=== PATIENT | female | born 1950 | race Caucasian/White ===

== ENCOUNTER 2023-10-16 11:53 | Inpatient (IN) | payer MEDICARE, MEDICAID, SELFPAY ==
[2023-10-16] VITALS (20 sets, daily range): BP systolic 109–138; BP diastolic 57–88; PULSE 101–114; RESP 14–26; TEMP 36.4–36.6; O2SAT 90–97; BMI 25.1
--- NOTE | ~2023-10-16 | XR_ITS ---
XR chest 2V Ordering provider: Cha Schmitt MD History: 73 years Female with . ams, abnormal labs . Comparison: None. FINDINGS: MEDIASTINUM: The cardiac silhouette is not enlarged. LUNGS: No effusion or pneumothorax. Opacification in the left lung base suggestive of atelectasis yash nikolay pneumonia. OTHER: No free air under the diaphragm. Dextroscoliosis with degenerative changes of the spine. Left shoulder osteoarthritic change. IMPRESSION: Left basal atelectasis versus pneumonia. Reviewed, dictated and finalized at location A.
--- NOTE | ~2023-10-16 | CT_ITS ---
EXAMINATION: CTA chest PE abdomen pel DATE: 10/16/2023 22:11 INDICATION: tachycardia, elevated troponin, hypoxemia TECHNIQUE: Computed tomography angiography (CTA) of the chest was performed with 100 mL Omnipaque-350 intravenous contrast timed to evaluate the pulmonary arteries, followed by portal venous phase imagi ng of the abdomen and pelvis. Coronal maximum intensity projection 3D-reconstructions were created by the technologist. The dose-length product (DLP) was 977.45 mGy-cm. Automated exposure control and it erative reconstruction technique were employed. COMPARISON: None. FINDINGS: CHEST: Lung parenchyma and airways: Left infrahilar mass measuring approximately 3.6 x 4.2 x 4.9 cm which oc cludes the traversing lower lobe bronchi and narrows the traversing pulmonary arteries. Segmental con solidation and volume loss distal to the mass. Multiple scattered pulmonary nodules. Pleura: Unremarkable. Thoracic inlet, axillae and chest wall: No thyroid or soft tissue mass. Thoracic aorta: No significant dilation. No dissection. Mediastinum: Enlarged AP window lymph node. Heart and pericardium: Normal. Coronary artery calcifications: Mild. Thoracic bones: Multiple lytic lesions in the thoracic vertebral bodies, the left lateral ninth rib, and the right posterior sixth rib. Pulmonary arteries: Study quality: . No pulmonary emboli detected. ABDOMEN/PELVIS: Liver: Innumerable hypoenhancing liver lesions. Biliary/Gallbladder: No bile duct dilation. Pancreas: Irregular rim-enhancing low-density lesion in the tail of the pancreas measuring up to 7.3 cm. Spleen: Normal. Adrenals:No mass. Kidneys: No suspicious mass, obstructing stone, or hydronephrosis. GI tract: No small or large bowel dilation. The appendix is not confidently visualized Mesentery/Peritoneum: Multiple marilu hepatic lymph nodes. The portal hepatic nodes and several mesent tano nodes contain central low density which may represent tumor/necrosis. Retroperitoneum: No mass. Atherosclerotic abdominal aortic and/or arterial calcifications. Pelvis: Urinary bladder wall edema and inflammatory change. Thickened endometrium versus endometrial fluid. Trace pelvic fluid. Normal bilateral ovaries.. Soft Tissues: Soft tissues and body wall unremarkable. Abdominopelvic bones: Multiple lytic lesions in the lumbar spine and pelvis. IMPRESSION: No CT evidence of acute pulmonary embolus. Left infrahilar mass measuring up to 4.9 cm, suspicious for neoplasia, which narrows traversing bronc hi and pulmonary arteries. This may represent a primary tumor site or metastatic hilar node. Postobst ructive atelectasis and possibly postobstructive pneumonia. Mediastinal lymphadenopathy and multiple pulmonary nodules suspicious for metastatic disease. 7.3 cm pancreatic tail mass, may represent tumor with central necrosis. Correlate with pancreatitis l abs and tumor markers. Marilu hepatic and mesenteric lymphadenopathy with necrosis. Multiple lytic osseous lesions in the ribs, thoracolumbar spine, and pelvis, also suspicious for meta static disease. Reviewed, dictated and finalized at location K. IMPRESSION: No CT evidence of acute pulmonary embolus. Left infrahilar mass measuring up to 4.9 cm, suspicious for neoplasia, which na rrows traversing bronchi and pulmonary arteries. This may represent a primary t umor site or metastatic hilar node. Postobstructive atelectasis and possibly po stobstructive pneumonia. Mediastinal lymphadenopathy and multiple pulmonary nodules suspicious for metas tatic disease. 7.3 cm pancreatic tail mass, may represent tumor with central necrosis. Correla te with pancreatitis labs and tumor markers. Marilu hepatic and mesenteric lymphadenopathy with n
--- NOTE | ~2023-10-16 | CT_ITS ---
EXAMINATION: CT brain wo con DATE: 10/16/2023 12:50 INDICATION: Altered mental status TECHNIQUE: Computed tomography (CT) of the head was performed without intravenous contrast. Sagittal and coronal reconstructions were performed. The mA was adjusted according to patient size. Iterative reconstruction technique was employed. The dose-length product was 681.00 mGy-cm. COMPARISON: head CT dated 03/12/2018 FINDINGS: Again seen is a right parietal ventricular shunt catheter with distal tip along the right side of the intraventricular septum. No acute intracranial hemorrhage, acute infarction or abnormal extra axial fluid collection. There is mild scattered white matter hypoattenuation consistent with chronic small vessel ischemic disease. Symmetric prominence of the sulci and anterior horns and bodies of the left and right lateral ventricles consistent with moderate age-appropriate diffuse cerebral volume loss. N o dilation of the temporal or occipital horns of the lateral ventricles to suggest hydrocephalus. No mass/mass effect. Unchanged medius retention cyst at the superomedial aspect of the left maxillary si nus. The orbits, paranasal sinuses and mastoid air cells are normal. IMPRESSION: 1. Unchanged right parietal ventricular shunt with distal tip in the right lateral ventricle along th e intraventricular septum. 2. Moderate central predominant atrophy with stable appearance of increased prominence of the sulci a nd bodies and anterior horns of the lateral ventricles without dilation of the occipital or temporal horns to suggest hydrocephalus. 3. Mild scattered white matter hypoattenuation consistent with chronic small vessel ischemic disease. . Reviewed, dictated and finalized at location A. IMPRESSION: 1. Unchanged right parietal ventricular shunt with distal tip in the right late ral ventricle along the intraventricular septum. 2. Moderate central predominant atrophy with stable appearance of increased pro minence of the sulci and bodies and anterior horns of the lateral ventricles wi thout dilation of the occipital or temporal horns to suggest hydrocephalus. 3. Mild scattered white matter hypoattenuation consistent with chronic small ve ssel ischemic disease..
--- NOTE | ~2023-10-16 | US_ITS ---
COMPLETE ABDOMINAL ULTRASOUND Ordering provider: Cha Schmitt MD History: . elevated LFTs . Comparison: None. FINDINGS: LIVER: Multiple masses are seen which shows hypoechoic echogenicity. Echogenic foci are seen in some of these masses. The liver is seen in the left lobe which measures 3.3 x 3.1 x 3.2 cm. These are most likely metastatic lesions. Clinical correlation advised. Abscesses are less likely. GALLBLADDER: No stones. No Armstrong's positive sign. A negative sonographic Armstrong's sign was noted. Wa ll thickness is 2 mm. BILIARY DUCTS: No evidence for intra or extrahepatic biliary dilation. Common bile duct measures 3.4 mm in diameter which is within normal limits. PANCREAS: Normal echotexture and size. KIDNEYS: Right measures 8.8x 5.2x 5.7 cm in length There is no evidence for hydronephrosis, solid brian al mass, renal calculi or perinephric fluid collections. No renal cysts. UPPER ABDOMINAL AORTA: Normal in caliber. IVC: Patent. FREE FLUID: None. IMPRESSION: Multiple hypoechoic areas in the liver most likely metastatic lesions. Clinical correlation and furth er evaluation advised.. Reviewed, dictated and finalized at location A. IMPRESSION: Multiple hypoechoic areas in the liver most likely metastatic lesions. Clinical correlation and further evaluation advised..
--- NOTE | ~2023-10-16 | US_ITS ---
EXAMINATION: US biopsy liver DATE: 10/17/2023 13:20 INDICATION: Multiple hepatic nodules suspicious for metastatic disease TECHNIQUE: The procedure including the risks and benefits was discussed with the patient's brother. R isks discussed included bleeding and infection. The patient's brother understood the risks and agreed to proceed. The skin overlying the left hepatic lobe was prepped and draped in usual sterile fashion . Anesthetic was administered with 1% lidocaine subcutaneously. An 18 gauge core biopsy needle was advanced under continuous ultrasound observation to the lesion of interest. 4 core biopsy specimens were obtained. The needle was removed and the entry site was cleaned and dressed. Post procedure ul trasound demonstrated no hemorrhage. FINDINGS: Ultrasound images demonstrate multiple hypoechoic masses scattered throughout the liver. Hunter bsequent images demonstrate biopsy needle passed through 2 of the nodules in the lateral segment of t he left hepatic lobe. IMPRESSION: 1. Successful Ultrasound-guided biopsy of a couple hypoechoic hepatic nodules suspicious for metastat ic disease. Reviewed, dictated and finalized at location A. IMPRESSION: 1. Successful Ultrasound-guided biopsy of a couple hypoechoic hepatic nodules s uspicious for metastatic disease.
--- NOTE | 2023-10-16 12:33 | ECG_ITS ---
Test Date: 2023-10-16 13:00:52 Measurements Intervals [place] Rate: 103 P: 41 TX: 155 QRS: -11 QRSD: 77 T: 27 QT: 349 QTc: 457 Interpretive Statements SINUS TACHYCARDIA POSSIBLE ANTERIOR MYOCARDIAL INFARCTION , PROBABLY OLD [30 ms Q WAVE IN V3/V4, OR R < 0.2 mV IN V4] INFERIOR MYOCARDIAL INFARCTION , PROBABLY OLD [40+ ms Q WAVE AND/OR ST/T ABNORMALITY IN II/aVF] ABNORMAL ECG No previous ECG available for comparison Electronically Signed On 10-16-2023 15:29:49 CDT by Miguelangel Andrew M.D.
[2023-10-16 13:19] LABS: Alveolar/Arterial O2 Gradient 36.6 mmHg; Base Excess ABG 6.9 mEq/l (+/-2.0); Carboxyhemoglobin 0.9 % THb (0-2.0); Fractional Inspired Oxygen 21 %; HCO3 ABG 30.8 mEq/l (22.0-26.0); Methemoglobin ABG 0.2 %THb (0-1.5); Oxygen Content ABG 18.3 %vol (16.0-22.0); Oxygen Saturation ABG 93.9 % (95.0-100.0); Oxyhemoglobin 91.2 % THb (90.0-100.0); PCO2 ABG 41.1 mmHg (35.0-45.0); PO2 ABG 63.9 mmHg (80.0-100.0); PO2 FiO2 Ratio Arterial Blood 3.04 %; Reduced Hemoglobin 7.7 %THb (0-5.0); Total Hemoglobin 14.3 g/dL (12.0-18.0); pH ABG 7.493 (7.350-7.450)
[2023-10-16 13:20] LABS: Modified Allen's Test Pass; Site Drawn RIGHT RADIAL
--- NOTE | 2023-10-16 13:34 | ED.RECABL ---
HPI - Recheck/Abnormal Lab/Rx General Chief Complaint: Recheck/Abnormal Lab/Rx Stated Complaint: abn labs Time Seen by Provider: 10/16/23 12:08 Source: patient, EMS, RN notes reviewed and old records reviewed Mode of arrival: EMS Limitations: other (poor historian) History of Present Illness HPI narrative: This is a 73 year old female who presents from halfway for evaluation of altered mental status. Labs were done on patient last week and she was found to have wbc of 16 last Monday. Patient has speech difficulties at baseline so it is difficult to get history. She knows her name and location. Nursing reports patient patient is normally oriented x 3 and today she is only oriented to 2. Related Data Home Medications Medication Instructions Recorded Confirmed aripiprazole 15 mg tablet 15 mg PO DAILY 07/31/19 buspirone 7.5 mg tablet 7.5 mg PO BID 07/31/19 citalopram 10 mg tablet 10 mg PO DAILY 07/31/19 Allergies Allergy/AdvReac Type Severity Reaction Status Date / Time No Known Allergies Allergy Unverified 07/31/19 11:31 Review of Systems Review of Systems: ROS unobtainable: Yes unobtainable due to medical condition and unobtainable due to mental status PMFSH Past Medical History Medical History (Updated 10/16/23 @ 21:24 by Cha Schmitt MD) Bronchitis Dizzy spells Hydrocephalus Mental disability without special needs Schizophrenia Surgical History Surgical History (Updated 10/16/23 @ 13:40 by Cha Schmitt MD) S/P COAT JOINER shunt Family History Family History (Updated 07/31/19 @ 11:40 by Walter Estrella CMA) Father , 85 liver cancer Liver cancer Mother , old age dementia Dementia Sibling Non-Hodgkin lymphoma Social History Social History (Updated 07/31/19 @ 11:21 by Walter Estrella CMA) Smoking status: Never smoker Alcohol intake: never Exam Const: General: alert Nutritional Appearance: well nourished Other: oriented to person and place HENMT: Head: normal to inspection Mouth: Yes Normal oral and palatal mucosa present, Yes lip normal and Yes moist mucous membranes Eyes: Pupils: Equal, round and reactive pupils present EOM: EOMs intact bilaterally Neck: Neck: normal visual inspection Resp: Effort & Inspection: normal respiratory effort Auscultation: clear to auscultation bilaterally Cardio: Rate: regular rate Rhythm: regular rhythm Heart sounds: no murmurs GI: Inspection: distended GI Palp: Yes Soft to palpation, No Tenderness to palpation present (GI), No Guarding due to palpation present (GI) and No Rigid due to palpation Auscultation: normal bowel sounds Skin: General skin exam: normal color Rashes: no rashes Neuro: General: moves all extremities, no focal motor deficits and CN's II-XI intact bilaterally Extrem: General: no pedal edema Psych: Mental Status: mental status grossly normal Affect: normal affect Attitude: cooperative Course Reevaluation(s) Reevaluation #1: Patient understands she will be admitted. I discussed with her brother who is her POA/ Date: 10/16/23 Time: 18:00 Consultations Consultation #1: I spoke with Mary Coleman with hospitalist. I discussed labs and imaging. She agrees to admit for evaluation of confusion, UTI and possible metastatic disase. Date: 10/16/23 Time: 15:00 Vital Signs Vital signs: Vital Signs Temperature 97.6 F 10/16/23 11:57 Pulse Rate 102 H 10/16/23 11:57 Respiratory Rate 16 10/16/23 11:57 Blood Pressure 120/88 10/16/23 11:57 Pulse Oximetry 94 10/16/23 11:57 Oxygen Delivery Room Air 10/16/23 11:57 Temperature 98 F 10/16/23 20:47 Pulse Rate 107 H 10/16/23 20:47 Respiratory Rate 20 10/16/23 20:47 Blood Pressure 128/65 10/16/23 20:47 Pulse Oximetry 91 10/16/23 20:47 Oxygen Delivery Room Air 10/16/23 11:57 MDM - Recheck/Abnormal Lab/Rx MDM Narrative Medical decision making narrative: Patient presented for
[2023-10-16 13:43] LABS: Hematocrit 43.7 % (37.0-47.0); Hemoglobin 13.6 g/dL (12.0-15.0); Mean Corpuscular HGB Conc 31.1 g/dl (32-36); Mean Corpuscular Hemoglobin 27.8 pg (26-34); Mean Corpuscular Volume 89.2 fl (80-100); Mean Platelet Volume 11.6 fl (7.4-10.4); Platelet Count Result 202 k/mm3 (150-375); Red Cell Distribution Width 18.5 % (11.5-14.5)
[2023-10-16 13:52] LABS: Prothrombin Time 14.1 Seconds (11.1-14.7)
[2023-10-16 13:53] LABS: Partial Thromboplastin Time 29.7 Seconds (22.3-36.8)
[2023-10-16 13:56] LABS: Ammonia 26 umol/L (9-30); Lactic Acid Reflex 1.4 mmol/L (0.7-2.0)
[2023-10-16 13:57] LABS: Alanine Aminotransferase 83 U/L (6-35); Albumin Level 3.5 g/dL (3.5-5.1); Alkaline Phosphatase 774 U/L (38-126); Anion Gap 6 mmol/L (4-12); Aspartate Amino Transferase 90 U/L (14-36); Bilirubin,Total 2.7 mg/dL (0.2-1.3); Blood Urea Nitrogen 22 mg/dL (7-17); Calcium 9.7 mg/dL (8.4-10.2); Carbon Dioxide 32 mmol/L (22-30); Chloride 107 mmol/L (98-107); Estimated CRCL calculation 59 ml/min; Estimated Glomerular Filt Rate > 60; Glucose 89 mg/dL (65-110); Lipase 86 U/L (23-300); Magnesium 2.3 mg/dL (1.6-2.3); Potassium 3.5 mmol/L (3.4-5.0); Sodium 145 mmol/L (137-145)
[2023-10-16 14:08] LABS: Eosinophils Absolute Manual 0.63 K/mm3 (0.02-0.50); Eosinophils Percent Manual 3 % (0-4); Lymphocytes Absolute Manual 1.89 K/mm3 (1.1-4.5); Monocytes Absolute Manual 1.05 K/mm3 (0.1-0.90); Monocytes Percent Manual 5 % (3-9); Neutrophils Percent Manual 83 % (46-73); Total Cells Counted 100
[2023-10-16 14:09] LABS: Anisocytosis 2+; Hypochromasia 1+; Platelet Estimate Adequate (Adequate); Schistocytes None Seen
[2023-10-16 14:10] LABS: NT Pro B Type Natriuretic Pept 177 pg/mL (19.9-100); Troponin I 0.051 ng/mL (0.000-0.034)
[2023-10-16 14:39] LABS: Influenza A QL RT-PCR Negative (Negative); Influenza B QL RT-PCR Negative (Negative); SARS-CoV-2 RNA PCR Negative (Negative)
[2023-10-16 14:41] LABS: Appearance Urine Cloudy (Clear); Bacteria Urine 4+ /hpf; Bilirubin Urine 2+ (Negative); Blood Urine 2+ (Negative); Color Urine Dark Yellow (Yellow); Glucose Urine UA Negative (Negative); Ketones Urine Negative (Negative); Leukocyte Esterase Ur 2+ LEU/UL (Negative); Need Manual Microscopic Reviewed; Nitrate Urine Positive (Negative); Protein Urine Trace mg/dL (Negative); Specific Grav Ur 1.027 (1.001-1.035); Squamous Epithelial Cell Urine Occasional /hpf (Few); WBC Urine >100 /hpf (0-3); pH Urine 5.5 (5.0-9.0)
[2023-10-16 14:51] LABS: Add Urine Microscopic? YES
[2023-10-16 15:14] LABS: Hepatitis B Surface Antigen Negative (Negative)
[2023-10-16 15:20] LABS: HAV RESULT Negative (Negative); Hepatitis B Core IgM Result Negative (Negative)
[2023-10-16 15:31] LABS: Hepatitis C Virus Antibody Negative (Negative)
[2023-10-16] MEDS: SODIUM CHLORIDE 0.9% IV 1,000 ML 999 ML IV CONT (15:31)
--- NOTE | 2023-10-16 15:54 | PC.NURSE ---
update given to Aixa MOORE, Nurse Stroboroma Operator Tres made aware of pt being admitted.
[2023-10-16 16:41] LABS: Glucose Point of Care 109 mg/dl (65-105)
[2023-10-16] MEDS: SODIUM CHLORIDE 0.9% IV 1,000 ML 125 ML IV CONT (17:05)
--- NOTE | 2023-10-16 17:15 | PC.NURSE ---
no thicken liquids per [facility]
[2023-10-16 17:19] LABS: Troponin I 0.054 ng/mL (0.000-0.034)
--- NOTE | 2023-10-16 19:36 | ADMGEN ---
This patient, Chloe Valladares, was admitted to IMU Room 206-01 on 10/16/23 at 1815. Patient/family oriented to hospital policies and general routines including ID bracelet, bed and alarms, visiting hours, pain management, procedures, bathroom and other care routines, personal items, smoking policy, room service/diet, and visiting hours. Information on how to activate the Rapid Response Team has been discussed. Patient/Family are encouraged to report perceived risks to care and to ask questions if they do not understand what they are told or what they should do.
--- NOTE | 2023-10-16 20:03 | PM.IMHP ---
H&P: HPI History of Present Illness Date/Time: 10/16/23 20:00 Chief Complaint: Confusion and elevated white blood cell count. Narrative: This is a the 3-year-old female with history of seizures, hydrocephalus intellectual disability, hypothyroidism, asthma, schizophrenia, and pseudobulbar affect who presented to the emergency department via EMS from [facility] for evaluation of confusion and elevated white blood cell count. The patient is a fair historian however some of the following is supplemented via a review of the paperwork which accompanies her today. Over the past week she has become increasingly confused and today she was reportedly alert and oriented x2 instead of x3. Labs done several days ago for evaluation of this confusion demonstrated an increase in white blood cells and she was sent in today for evaluation. At the time my evaluation the patient is resting comfortably. She reports dysuria, mild lower abdominal discomfort, and decrease in appetite. She denies fever, chills, sweats, cold and flu symptoms, chest pain, pleuritic pain, shortness of breath, diarrhea, and constipation. She and fact tells me that her abdomen seems to be getting bigger. In the ED: She was afebrile on arrival with stable blood pressures. She has been tachycardic in the low 100s. Labs were significant for WBC count 21.0, hemoglobin 13.6, platelet 202, BUN 22, creatinine 0.60, total bilirubin 2.7, AST 90, ALT 83, alkaline phosphatase 774, troponin 0.051, BNP 177, lipase 86. Urine is positive for 2+ blood, 2+ bilirubin, 4.0 urobilinogen, positive nitrates, 2+ leukocyte esterase, 11 to 20 RBC, greater than 100 WBC, and 4+ bacteria with occasional squamous cells. She tested negative for influenza and COVID. Abdominal ultrasound showed multiple hypoechoic areas in the liver most likely metastatic lesions. Chest x-ray shows left basilar atelectasis versus pneumonia. Head CT was without acute findings. Is given a dose of ceftriaxone for urinary tract infection and L normal saline bolus and she is being admitted in this setting for further treatment and evaluation. Review of Systems Review of Systems: 12 systems were reviewed and are negative except for as per HPI. [facility] Past Medical History Medical History (Updated 10/16/23 @ 22:00 by Mary Coleman PA-C) Asthma Hydrocephalus Hypothyroidism Intellectual disability Pseudobulbar affect Schizophrenia Seizure Surgical History Surgical History (Updated 10/16/23 @ 21:56 by Mary Coleman PA-C) History of ventriculoperitoneal shunting Family History Family History Father , 85 liver cancer Liver cancer Mother , old age dementia Dementia Sibling Non-Hodgkin lymphoma Social History Social History (Updated 10/16/23 @ 21:56 by Mary Coleman PA-C) Social History: Surrogate medical decision maker: Ion Jacquelyn, brother. Code status: Do not resuscitate. Smoking status: Never smoker Alcohol intake: never Additional living arrangements comments: Resident at [facility] in [place]. Meds Home Medications and Allergies Home Medications Medication Instructions Recorded Confirmed Type aripiprazole 15 mg tablet 15 mg PO DAILY 07/31/19 History buspirone 7.5 mg tablet 7.5 mg PO BID 07/31/19 History citalopram 10 mg tablet 10 mg PO DAILY 07/31/19 History Allergies Allergy/AdvReac Type Severity Reaction Status Date / Time No Known Allergies Allergy Unverified 07/31/19 11:31 Vital Signs Vital Signs - 24 hr 10/16/23 11:57 10/16/23 12:12 10/16/23 12:16 Temperature 97.6 F Pulse Rate 102 H 104 H 106 H Respiratory Rate 16 17 17 Blood Pressure 120/88 138/74 Pulse Oximetry 94 97 95 Oxygen Delivery Room Air 10/16/23 13:15 10/16/23 13:30 10/16/23 14:01 Temperature Pulse Rate 105 H 107 H Respiratory Rate 14 15 14 Blood Pressure Puls
[2023-10-16 20:42] LABS: Troponin I 0.055 ng/mL (0.000-0.034)
[2023-10-16 20:58] LABS: Glucose Point of Care 107 mg/dl (65-105)
[2023-10-16 22:38] LABS: Ammonia < 9 umol/L (9-30)
[2023-10-16 23:33] LABS: Vitamin B12 > 1000.0 pg/mL (239-931)
[2023-10-17] VITALS (16 sets, daily range): BP systolic 108–132; BP diastolic 63–82; PULSE 90–108; RESP 12–18; TEMP 36–36.8; O2SAT 92–98
[2023-10-17 00:16] LABS: Amphetamine Screen Urine Negative (Negative); Barbiturate Screen Urine Negative (Negative); Benzodiazepines Screen Urine Negative (Negative); Cannabinoid Screen Urine Negative (Negative); Cocaine Screen Urine Negative (Negative); Methadone Screen Urine Negative (Negative); Opiate Screen Urine Negative (Negative); Phencyclidine Screen Urine Negative (Negative)
[2023-10-17] MEDS: SODIUM CHLORIDE 0.9% IV 1,000 ML 125 ML IV CONT (03:13)
[2023-10-17 05:22] LABS: Basophils Absolute Auto 0.1 K/mm3 (0.0-0.1); Basophils Percent Auto 0.6 % (0.2-1.2); Eosinophils Absolute Auto 1.3 K/mm3 (0-0.3); Hematocrit 39.7 % (37.0-47.0); Immature Granulocyte Absolute 0.12 K/mm3 (0.00-0.031); Immature Granulocyte Percent A 0.7 % (0-0.5); Lymphocytes Absolute Auto 1.41 K/mm3 (0.9-3.2); Lymphocytes Percent Auto 8.5 % (18.3-44.2); Mean Corpuscular HGB Conc 30.2 g/dl (32-36); Mean Corpuscular Hemoglobin 27.5 pg (26-34); Mean Corpuscular Volume 90.8 fl (80-100); Mean Platelet Volume 11.7 fl (7.4-10.4); Monocytes Absolute Auto 1.3 K/mm3 (0.1-0.6); Monocytes Percent Auto 7.6 % (2.6-8.5); Neutrophils Absolute Auto 12.4 K/mm3 (1.3-6.7); Neutrophils Percent Auto 74.6 % (45.5-73.1); Platelet Count Result 148 k/mm3 (150-375); Red Blood Count 4.37 M/mm3 (4.2-5.4); Red Cell Distribution Width 18.5 % (11.5-14.5); White Blood Count 16.7 K/mm3 (4.5-10.0)
[2023-10-17 05:34] LABS: Alanine Aminotransferase 67 U/L (6-35); Albumin Level 2.9 g/dL (3.5-5.1); Alkaline Phosphatase 585 U/L (38-126); Anion Gap 3 mmol/L (4-12); Aspartate Amino Transferase 70 U/L (14-36); Bilirubin,Total 2.4 mg/dL (0.2-1.3); Blood Urea Nitrogen 16 mg/dL (7-17); Calcium 8.9 mg/dL (8.4-10.2); Carbon Dioxide 30 mmol/L (22-30); Chloride 109 mmol/L (98-107); Estimated CRCL calculation 59 ml/min; Estimated Glomerular Filt Rate > 60; Glucose 87 mg/dL (65-110); Magnesium 2.1 mg/dL (1.6-2.3); Potassium 3.7 mmol/L (3.4-5.0); Sodium 142 mmol/L (137-145)
[2023-10-17 07:46] LABS: Glucose Point of Care 102 mg/dl (65-105)
[2023-10-17 09:20] LABS: Iron 43 ug/dL (37-170)
[2023-10-17 09:24] LABS: CRP 5.7 mg/dL (<1.0)
[2023-10-17 09:30] LABS: Percent Iron Saturation 24 % (20-50)
--- NOTE | 2023-10-17 09:31 | PDONCCN ---
HPI - Date of Consult Date/Time: 10/17/23 12:35 <Can Barrera - 10/17/23 12:38> 10/17/23 09:31 <Chikis Koo - 10/17/23 09:37> Requesting Physician: Bayron Jones MD <Can Barrera - 10/17/23 12:38> Bayron Jones MD <Chikis Koo - 10/17/23 09:37> Primary Care Provider: Robert Desir, <Can Barrera - 10/17/23 12:38> Robert Desir, <Chikis Koo - 10/17/23 09:37> - Consult Narrative Reason for consult: Metastatic Disease <HananeChikis - 10/17/23 09:37> Narrative: Chloe Valladares is a 73 year old female <Can Barrera - 10/17/23 12:38> Chloe Valladares is a 73 year old female with a past medical history of intellectual disability, hydrocephalus, seizures, hypothyroidism, asthma, schizophrenia who was admitted for [facility] for confusion and increased WBC. Upon speaking to patient, she is oriented x1-2. She denies any abdominal pain, reports a fair appetite, feels as if she had mild weight loss, and reports intermittent belly pain at night. She denies any smoking history or alcohol use. Brother has a history of non hodgkins lymphoma. She is on oxygen and is not typically at home. CT scan was performed and is concerning for metastatic disease involving the mediastinal and infrahilar lymphnodes as well as pancreas and osseous lesions. Labs are notable for WBC 16.7, Hgb 12, Plt 148, Cr 0.60 <Chikis Koo - 10/17/23 10:11> Review of Systems - Review of Systems All systems reviewed & are unremarkable except as noted in HPI and bel, unobtainable due to mental status <HananeChikis - 10/17/23 09:37> [facility] Medical History: Medical History (Last Updated 10/16/23 @ 22:00 by Mary Coleman PA-C) Asthma Hydrocephalus Hypothyroidism Intellectual disability Pseudobulbar affect Schizophrenia Seizure <Can Barrera. - 10/17/23 12:38> Medical History (Last Updated 10/16/23 @ 22:00 by Mary Coleman PA-C) Asthma Hydrocephalus Hypothyroidism Intellectual disability Pseudobulbar affect Schizophrenia Seizure <Chikis Koo - 10/17/23 09:37> Surgical History: Surgical History (Last Updated 10/16/23 @ 21:56 by Mary Coleman PA-C) History of ventriculoperitoneal shunting <Can Barrera. - 10/17/23 12:38> Surgical History (Last Updated 10/16/23 @ 21:56 by Mary Coleman PA-C) History of ventriculoperitoneal shunting <ErrolChikis peralta - 10/17/23 09:37> Family History: Family History (Last Updated 10/17/23 @ 01:02 by Sara Tate RN) Father , 85 liver cancer Liver cancer Mother , old age dementia Dementia Sibling Non-Hodgkin lymphoma Other Dementia Sibling No problems noted. <Can Barrera. - 10/17/23 12:38> Family History (Last Updated 10/17/23 @ 01:02 by Sara Tate, ZOYA) Father , 85 liver cancer Liver cancer Mother , old age dementia Dementia Sibling Non-Hodgkin lymphoma Other Dementia Sibling No problems noted. <Mir Koone - 10/17/23 09:37> - Social History Social History: Social History (Last Updated 10/16/23 @ 21:56 by Mary Coleman PA-C) Alcohol Use: Alcohol intake: never Substance Use: Substance use: never Others: Spiritual care concerns: No Smoking Status: Smoking status: Never smoker Social Determinants of Health: Do You Feel Safe in your Home?: Yes Has the Lack of Transportation Kept You From Medical Appointments or From Getting Medications?: Yes Within the Past 12 Months, Were You Worried Whether Your Food Would Run Out Before You Got Money to Buy More?: Never True What is Your Housing Situation Today?: I Have Housing Are You Worried That in the Next 2 Months, You May Not Have Your Own Housing to Live In?:
[2023-10-17 09:40] LABS: Erythrocyte Sedimentation Rate 46 mm/hr (0-20)
[2023-10-17] MEDS: busPIRone HCL 5 MG TABLET 15 MG PO ×2 (09:41→17:14)
[2023-10-17] MEDS: ESCITALOPRAM OXALATE 10 MG TABLET 20 MG PO (09:42)
[2023-10-17] MEDS: DULoxetine HCL 30 MG CAPSULE.DR PO (09:42)
[2023-10-17] MEDS: ARIPiprazole 10 MG TABLET 20 MG PO (09:42)
[2023-10-17] MEDS: FAMOTIDINE 20 MG TABLET PO ×2 (09:42→17:14)
[2023-10-17] MEDS: traMADol HCL (*CRX) 50 MG TABLET 100 MG PO ×2 (09:53→17:15)
[2023-10-17 11:55] LABS: Glucose Point of Care 107 mg/dl (65-105)
--- NOTE | 2023-10-17 13:58 | PM.IMPN ---
Progress Note: A&P Assessment and Plan (1) Urinary tract infection: Code(s): N39.0 - Urinary tract infection, site not specified Status: Acute (2) Transaminitis: Code(s): R74.01 - Elevation of levels of liver transaminase levels Status: Acute (3) Elevated troponin: Code(s): R79.89 - Other specified abnormal findings of blood chemistry Status: Acute (4) Lesion of liver: Code(s): K76.9 - Liver disease, unspecified Status: Acute (5) Intellectual disability: Code(s): F79 - Unspecified intellectual disabilities Status: Acute (6) Schizophrenia: Code(s): F20.9 - Schizophrenia, unspecified Status: Acute Plan This is a the 73-year-old female with history of seizures, hydrocephalus intellectual disability, hypothyroidism, asthma, schizophrenia, and pseudobulbar affect who presented to the emergency department via EMS from [facility] for evaluation of confusion and elevated white blood cell count. The patient is a fair historian however some of the following is supplemented via a review of the paperwork which accompanies her today. Over the past week she has become increasingly confused and today she was reportedly alert and oriented x2 instead of x3. Labs done several days ago for evaluation of this confusion demonstrated an increase in white blood cells and she was sent in for evaluation. She reports dysuria, mild lower abdominal discomfort, and decrease in appetite. She denies fever, chills, sweats, cold and flu symptoms, chest pain, pleuritic pain, shortness of breath, diarrhea, and constipation. She Reported her abdomen seems to be getting bigger. In the ED: She was afebrile on arrival with stable blood pressures. She has been tachycardic in the low 100s. Labs were significant for WBC count 21.0, hemoglobin 13.6, platelet 202, BUN 22, creatinine 0.60, total bilirubin 2.7, AST 90, ALT 83, alkaline phosphatase 774, troponin 0.051, BNP 177, lipase 86. Urine is positive for 2+ blood, 2+ bilirubin, 4.0 urobilinogen, positive nitrates, 2+ leukocyte esterase, 11 to 20 RBC, greater than 100 WBC, and 4+ bacteria with occasional squamous cells. She tested negative for influenza and COVID. Abdominal ultrasound showed multiple hypoechoic areas in the liver most likely metastatic lesions. Chest x-ray shows left basilar atelectasis versus pneumonia. Head CT was without acute findings. She received ceftriaxone for UTI and L off normal saline bolus and admitted for further treatment. UTI: Ceftriaxone urine culture pending Altered mental status as reported however since back to baseline. CT head showed chronic findings with no acute intracranial abnormalities. Will continue to monitor Mild troponin elevation with flat trend Abnormal liver enzymes and abnormal right upper quadrant ultrasound. Further evaluated with a CT chest abdomen pelvis which showed left infrahilar mass measuring up to 4.9 cm suspicious for neoplasm the a which narrows traversing bronchi and pulmonary arteries. May represent a primary tumor or metastatic hilar node. Postobstructive atelectasis and possibly postobstructive pneumonia noted. Mediastinal lymphadenopathy and multiple pulmonary nodules suspicious for metastatic disease. 7.3 cm pancreatic tail mass which may represent tumor with central necrosis. Port gap attic and mesenteric lymphadenopathy with necrosis noted. Multiple lytic osseous lesions in the ribs thoracolumbar spine and pelvis also suspicious for metastatic disease IR consult for biopsy Oncology consultation DVT prophylaxis Lovenox which is held this a.m. for potential biopsy Code status do not resuscitate. Subjective Date/time seen: 10/17/23 13:58 Interval history: No overnight events. No new complaints. Hard to understand her. Discussed with the nursing staff. Review of Systems Review of Systems: All systems reviewed & are unremarkable except as noted in HPI and below Ex
[2023-10-17 16:13] LABS: Glucose Point of Care 89 mg/dl (65-105)
[2023-10-17] MEDS: ACETAMINOPHEN 325 MG TABLET 650 MG PO (21:16)
[2023-10-17] MEDS: MONTELUKAST SODIUM 10 MG TABLET PO (21:17)
[2023-10-17] MEDS: traZODone HCL 50 MG TABLET PO (21:17)
[2023-10-17] MEDS: ATORVASTATIN 10 MG TABLET PO (21:17)
--- NOTE | 2023-10-17 22:06 | ECHO_ITS ---
Patient Info Name: Chloe Valladares Age: 73 years : 1950 Gender: Female Ht: 64 in Wt: 143 lbs BSA: 1.72 m2 HR: 90 bpm BP: 122 / 82 mmHg Heart Rhythm: Sinus Rhythm Technical Quality: Fair Exam Date: 10/17/2023 8:21 AM Exam Location: Echo Lab Patient Status: Inpatient Admit Date: 10/16/2023 Staff Ordering Physician: Mary Coleman PA-C [place] Turner: Johnna Suarez RDCS Attending Provider: Bayron Jones MD Referring Physician: Virginia HOPKINS; Exam Type: CA echo doppler color flow Study Info Indications - ELEVATED TROPONIN Complete two-dimensional, color flow and Doppler transthoracic echocardiogram is performed. Summary 1. Left ventricular chamber dimension is normal. 2. Left ventricular systolic function is normal, estimated at >70%. 3. There is mildly increased left ventricular wall thickness. 4. The left ventricular diastolic function is grade I diastolic dysfunction. 5. Right ventricular systolic function is normal. 6. No significant valvular disease. Left Ventricle Left ventricular chamber dimension is normal. Left ventricular systolic function is normal, estimated at >70%. There is mildly increased left ventricular wall thickness. The left ventricular diastolic function is grade I diastolic dysfunction. Right Ventricle Right ventricular chamber dimension is normal. Right ventricular systolic function is normal. Left Atria Left atrial chamber dimension is normal. Right Atria Right atrial chamber dimension is normal. Atrial Septum Intact interatrial septum visualized by color flow imaging. Aortic Valve The aortic valve is probable trileaflet. There is no aortic valve stenosis. There is trace aortic valve regurgitation. There is mild aortic valve calcification. Pulmonic Valve The pulmonic valve is not well visualized. There is no pulmonic regurgitation. Mitral Valve There is trace mitral valve regurgitation. Tricuspid Valve There is trace tricuspid valve regurgitation. Pericardium/Pleural The pericardium appears epicardial fat pad. There is no pericardial effusion. Inferior Vena Cava Normal inferior vena cava with >50% collapse upon inspiration consistent with normal right atrial pressure, 3 mmHg. Aorta The aortic root size at the sinus of Valsalva is normal. Left Ventricular Outflow Tract Name Value Normal LVOT 2D LVOT Diameter 2.0 cm LVOT Doppler LVOT Peak Gradient 4 mmHg LVOT Mean Gradient 2 mmHg LVOT VTI 15 cm LVOT VTI/AV VTI Ratio 0.8 LVOT Stroke Volume 44 ml LVOT CO 4.6 l/min LVOT CI 2.7 l/min/m2 Pulmonic Valve Name Value Normal RVOT Doppler RVOT Peak Gradient 2 mmHg PV Doppler
[2023-10-18] VITALS (15 sets, daily range): BP systolic 112–136; BP diastolic 53–74; PULSE 97–120; RESP 15–20; TEMP 36.2–37.1; O2SAT 90–94
[2023-10-18 04:47] LABS: Basophils Absolute Auto 0.1 K/mm3 (0.0-0.1); Basophils Percent Auto 0.8 % (0.2-1.2); Eosinophils Absolute Auto 1.4 K/mm3 (0-0.3); Eosinophils Percent Auto 8.9 % (0-4.4); Hematocrit 37.9 % (37.0-47.0); Hemoglobin 11.8 g/dL (12.0-15.0); Immature Granulocyte Absolute 0.08 K/mm3 (0.00-0.031); Immature Granulocyte Percent A 0.5 % (0-0.5); Lymphocytes Absolute Auto 1.39 K/mm3 (0.9-3.2); Lymphocytes Percent Auto 9.2 % (18.3-44.2); Mean Corpuscular HGB Conc 31.1 g/dl (32-36); Mean Corpuscular Hemoglobin 28.1 pg (26-34); Mean Corpuscular Volume 90.2 fl (80-100); Mean Platelet Volume 11.6 fl (7.4-10.4); Monocytes Absolute Auto 1.3 K/mm3 (0.1-0.6); Monocytes Percent Auto 8.3 % (2.6-8.5); Neutrophils Absolute Auto 10.9 K/mm3 (1.3-6.7); Neutrophils Percent Auto 72.3 % (45.5-73.1); Platelet Count Result 141 k/mm3 (150-375); White Blood Count 15.1 K/mm3 (4.5-10.0)
[2023-10-18 04:56] LABS: Alanine Aminotransferase 68 U/L (6-35); Albumin Level 2.8 g/dL (3.5-5.1); Alkaline Phosphatase 596 U/L (38-126); Anion Gap 3 mmol/L (4-12); Aspartate Amino Transferase 90 U/L (14-36); Bilirubin,Total 2.4 mg/dL (0.2-1.3); Blood Urea Nitrogen 18 mg/dL (7-17); Calcium 9.2 mg/dL (8.4-10.2); Carbon Dioxide 30 mmol/L (22-30); Chloride 107 mmol/L (98-107); Estimated CRCL calculation 59 ml/min; Estimated Glomerular Filt Rate > 60; Glucose 115 mg/dL (65-110); Magnesium 2.2 mg/dL (1.6-2.3); Potassium 3.5 mmol/L (3.4-5.0); Sodium 140 mmol/L (137-145)
[2023-10-18 05:13] LABS: Glucose Point of Care 118 mg/dl (65-105)
[2023-10-18 07:48] LABS: Glucose Point of Care 108 mg/dl (65-105)
[2023-10-18] MEDS: traMADol HCL (*CRX) 50 MG TABLET 100 MG PO ×2 (09:01→17:56)
[2023-10-18] MEDS: ESCITALOPRAM OXALATE 10 MG TABLET 20 MG PO (09:01)
[2023-10-18] MEDS: busPIRone HCL 5 MG TABLET 15 MG PO ×2 (09:01→17:07)
[2023-10-18] MEDS: ARIPiprazole 10 MG TABLET 20 MG PO (09:01)
[2023-10-18] MEDS: FAMOTIDINE 20 MG TABLET PO ×2 (09:02→17:07)
[2023-10-18] MEDS: DULoxetine HCL 30 MG CAPSULE.DR PO (09:02)
--- NOTE | 2023-10-18 11:44 | PM.IMPN ---
Progress Note: A&P Assessment and Plan (1) Urinary tract infection: Code(s): N39.0 - Urinary tract infection, site not specified Status: Acute (2) Transaminitis: Code(s): R74.01 - Elevation of levels of liver transaminase levels Status: Acute (3) Elevated troponin: Code(s): R79.89 - Other specified abnormal findings of blood chemistry Status: Acute (4) Lesion of liver: Code(s): K76.9 - Liver disease, unspecified Status: Acute (5) Intellectual disability: Code(s): F79 - Unspecified intellectual disabilities Status: Acute (6) Schizophrenia: Code(s): F20.9 - Schizophrenia, unspecified Status: Acute Plan UTI: Ceftriaxone urine culture growing EColi - sensitivies pending Altered mental status as reported however seems back to baseline. CT head showed chronic findings with no acute intracranial abnormalities. Will continue to monitor Mild troponin elevation with flat trend Abnormal liver enzymes and abnormal right upper quadrant ultrasound. Further evaluated with a CT chest abdomen pelvis which showed left infrahilar mass measuring up to 4.9 cm suspicious for neoplasm which narrows traversing bronchi and pulmonary arteries. May represent a primary tumor or metastatic hilar node. Postobstructive atelectasis and possibly postobstructive pneumonia noted. Mediastinal lymphadenopathy and multiple pulmonary nodules suspicious for metastatic disease. 7.3 cm pancreatic tail mass which may represent tumor with central necrosis. Marilu hepatic and mesenteric lymphadenopathy with necrosis noted. Multiple lytic osseous lesions in the ribs thoracolumbar spine and pelvis also suspicious for metastatic disease IR consulted for biopsy which was done 10/16 Oncology following. Discussed with family and all questions answered. He is considering hospice. DVT prophylaxis Lovenox which is held this a.m. for potential biopsy Code status do not resuscitate. Subjective Date/time seen: 10/18/23 11:44 Interval history: 73yo female with dementia, seizures, hydrocephalus with intellectual disability, hypothyroidism, asthma, schizophrenia, and pseudobulbar affect who presented to the emergency department via EMS from [facility] for evaluation of confusion and elevated white blood cell count. Assuming care. Chart reviewed. She is unable to provide a hx. Review of Systems Review of Systems: ROS unobtainable: Yes unobtainable due to mental status Exam Narrative: AF 97.3 124/59 102 15 91% 1L Gen - NARD lying almost flat in bed Chest - lungs clear anteriorly and in the flanks. nml RR CV - RRR S1/S2. Tele showing no signifincant dysrhythmias Abd - Soft, minimal tenderness in the RUQ, no hematoma at biopsy site RUQ Ext - No pedal edema Psych - Nml mood and affect. alert, confused Skin - Warm and dry Objective Data Vital Signs Vital Signs: Vital Signs - 24 hr 10/17/23 11:45 10/17/23 12:00 10/17/23 12:00 Temperature 98.3 F Pulse Rate 100 106 H Respiratory Rate 12 Blood Pressure 132/73 Pulse Oximetry 92 94 Oxygen Delivery Nasal Cannula Oxygen Flow Rate 1 10/17/23 14:00 10/17/23 16:00 10/17/23 16:00 Temperature 98.0 F Pulse Rate 102 H 101 H 99 Respiratory Rate 16 Blood Pressure 127/68 Pulse Oximetry 94 Oxygen Delivery Oxygen Flow Rate 10/17/23 16:00 10/17/23 18:00 10/17/23 20:00 Temperature 96.8 F L Pulse Rate 103 H 107 H Respiratory Rate 18 Blood Pressure 123/63 Pulse Oximetry 94 94 Oxygen Delivery Nasal Cannula Oxygen Flow Rate 1 10/17/23 20:00 10/18/23 00:00 10/17/23 20:00 Temperature 97.2 F L Pulse Rate 102 H 106 H Respiratory Rate 18 Blood Pressure 124/71 Pulse Oximetry 93 94 Oxygen Delivery Nasal Cannula Oxygen Flow Rate 1 10/17/23 22:00 10/18/23 00:00 10/18/23 00:00 Temperature Pulse Rate 105 H 108 H Respiratory Rate Blood Pressure
[2023-10-18 12:04] LABS: Glucose Point of Care 99 mg/dl (65-105)
[2023-10-18 15:48] LABS: Glucose Point of Care 133 mg/dl (65-105)
[2023-10-18] MEDS: traZODone HCL 50 MG TABLET PO (20:04)
[2023-10-18] MEDS: MONTELUKAST SODIUM 10 MG TABLET PO (20:04)
[2023-10-18] MEDS: ACETAMINOPHEN 325 MG TABLET 650 MG PO (20:05)
[2023-10-18 21:11] LABS: Glucose Point of Care 92 mg/dl (65-105)
[2023-10-19] VITALS (9 sets, daily range): BP systolic 101–126; BP diastolic 48–72; PULSE 103–119; RESP 12–20; TEMP 36.7–37.1; O2SAT 91–94
[2023-10-19 07:52] LABS: Glucose Point of Care 91 mg/dl (65-105)
--- NOTE | 2023-10-19 08:49 | PM.IMPN ---
Progress Note: A&P Assessment and Plan (1) Urinary tract infection: Code(s): N39.0 - Urinary tract infection, site not specified Status: Acute (2) Transaminitis: Code(s): R74.01 - Elevation of levels of liver transaminase levels Status: Acute (3) Elevated troponin: Code(s): R79.89 - Other specified abnormal findings of blood chemistry Status: Acute (4) Lesion of liver: Code(s): K76.9 - Liver disease, unspecified Status: Acute (5) Intellectual disability: Code(s): F79 - Unspecified intellectual disabilities Status: Acute (6) Schizophrenia: Code(s): F20.9 - Schizophrenia, unspecified Status: Acute Plan UTI: Ceftriaxone urine culture growing EColi - sensitivies pending Altered mental status as reported however seems back to baseline. CT head showed chronic findings with no acute intracranial abnormalities. Will continue to monitor Mild troponin elevation with flat trend Abnormal liver enzymes and abnormal right upper quadrant ultrasound. Further evaluated with a CT chest abdomen pelvis which showed left infrahilar mass measuring up to 4.9 cm suspicious for neoplasm which narrows traversing bronchi and pulmonary arteries. May represent a primary tumor or metastatic hilar node. Postobstructive atelectasis and possibly postobstructive pneumonia noted. Mediastinal lymphadenopathy and multiple pulmonary nodules suspicious for metastatic disease. 7.3 cm pancreatic tail mass which may represent tumor with central necrosis. Marilu hepatic and mesenteric lymphadenopathy with necrosis noted. Multiple lytic osseous lesions in the ribs thoracolumbar spine and pelvis also suspicious for metastatic disease IR consulted for biopsy which was done 10/16 Oncology following. Discussed with family and all questions answered. He is considering hospice. DVT prophylaxis Lovenox which is held this a.m. for potential biopsy Code status do not resuscitate. Subjective Date/time seen: 10/19/23 08:49 Interval history: 73yo female with dementia, seizures, hydrocephalus with intellectual disability, hypothyroidism, asthma, schizophrenia, and pseudobulbar affect who presented to the emergency department via EMS from [facility] for evaluation of confusion and elevated white blood cell count. Assuming care. Chart reviewed. She is unable to provide a hx. Review of Systems Review of Systems: ROS unobtainable: Yes unobtainable due to medical condition Exam Narrative: AF 98.0 125/71 105 20 91% 1L Gen - NARD Chest - CTA bilaterally, nml RR CV - RRR S1/S2. Tele showing mild sinus tachycardia but no significant dysrhythmias Abd - Soft, NT, ND, +BS Ext - No pedal edema Psych - Nml mood and affect. alert, confused Skin - Warm and dry Objective Data Vital Signs Vital Signs: Vital Signs - 24 hr 10/18/23 12:00 10/18/23 10:00 10/18/23 12:00 Temperature 98.7 F Pulse Rate 111 H 108 H 111 H Respiratory Rate 15 Blood Pressure 129/74 Pulse Oximetry 91 10/18/23 14:00 10/18/23 16:00 10/18/23 16:00 Temperature 97.5 F L Pulse Rate 114 H 120 H 116 H Respiratory Rate 20 Blood Pressure 115/68 Pulse Oximetry 90 10/18/23 18:00 10/18/23 19:51 10/18/23 20:00 Temperature 97.6 F Pulse Rate 115 H 112 H 114 H Respiratory Rate 18 Blood Pressure 136/73 Pulse Oximetry 92 10/18/23 22:00 10/18/23 23:20 10/19/23 00:00 Temperature 97.5 F L Pulse Rate 110 H 112 H 105 H Respiratory Rate 18 Blood Pressure 112/56 L Pulse Oximetry 93 10/19/23 01:52 10/19/23 04:00 10/19/23 04:00 Temperature 98.8 F Pulse Rate 103 H 104 H 106 H Respiratory Rate 18 Blood Pressure 126/71 Pulse Oximetry 94 10/19/23 06:00 10/19/23 08:00 Temperature 98.0 F Pulse Rate 105 H 105 H Respiratory Rate 20 Blood Pressure 125/71 Pulse Oximetry 91 Intake/Output Intake/Output: Intake & Output 10/16/23 10/17/23
[2023-10-19] MEDS: DULoxetine HCL 30 MG CAPSULE.DR PO (09:58)
[2023-10-19] MEDS: ARIPiprazole 10 MG TABLET 20 MG PO (09:58)
[2023-10-19] MEDS: busPIRone HCL 5 MG TABLET 15 MG PO ×2 (09:58→17:11)
[2023-10-19] MEDS: ENOXAPARIN 40 MG/0.4 ML SYRINGE SUB-Q (09:58)
[2023-10-19] MEDS: CEFDINIR 300 MG CAPSULE PO (09:59)
[2023-10-19] MEDS: FAMOTIDINE 20 MG TABLET PO ×2 (09:59→17:11)
[2023-10-19] MEDS: traMADol HCL (*CRX) 50 MG TABLET 100 MG PO ×2 (09:59→17:11)
[2023-10-19] MEDS: ESCITALOPRAM OXALATE 10 MG TABLET 20 MG PO (09:59)
[2023-10-19 11:32] LABS: Glucose Point of Care 157 mg/dl (65-105)
--- NOTE | 2023-10-19 16:01 | PM.DS ---
DS: Admitting Diagnosis Discharge Date 10/19/23 Admitting Diagnosis Confusion and elevated white blood cell count DS: Discharge Diagnosis Discharge Diagnosis (1) Sepsis: Code(s): A41.9 - Sepsis, unspecified organism Status: Acute (2) Urinary tract infection: Code(s): N39.0 - Urinary tract infection, site not specified Status: Acute (3) Transaminitis: Code(s): R74.01 - Elevation of levels of liver transaminase levels Status: Acute (4) Elevated troponin: Code(s): R79.89 - Other specified abnormal findings of blood chemistry Status: Acute (5) Lesion of liver: Code(s): K76.9 - Liver disease, unspecified Status: Acute (6) Intellectual disability: Code(s): F79 - Unspecified intellectual disabilities Status: Acute (7) Schizophrenia: Code(s): F20.9 - Schizophrenia, unspecified Status: Acute (8) Sinus tachycardia: Code(s): R00.0 - Tachycardia, unspecified Status: Acute DS: Summary Hospital Course Reason for hospitalization: 73yo female with dementia, seizures, hydrocephalus with intellectual disability, hypothyroidism, asthma, schizophrenia, and pseudobulbar affect who presented to the emergency department via EMS from [facility] for evaluation of confusion and elevated white blood cell count. Please see H&P for details Hospital Course: Patient admitted for altered mental status. She had sepsis present on admission with tachycardia and leukocytosis. UA consistent with UT. Ceftriaxone started. Urine culture growing EColi that was relatively torres-sensitive. Altered mental status improved and reported to be back to baseline. CT head showed chronic findings with no acute intracranial abnormalities. Mild troponin elevation to 0.05 but with flat trend. EKG showing sinus tachycardia (103) with probably old AMI and IMI. Echo showing EF 70% with LV wall thickness with Grade I diastolic dysfunction. Abnormal liver enzymes noted and RUQ ordered. She had an abnormal right upper quadrant ultrasound. CTA chest/abdomen/pelvis showing no PE but left infrahilar mass measuring up to 4.9 cm suspicious for neoplasm which narrows traversing bronchi and pulmonary arteries. May represent a primary tumor or metastatic hilar node. Postobstructive atelectasis and possibly postobstructive pneumonia noted. Mediastinal lymphadenopathy and multiple pulmonary nodules suspicious for metastatic disease. 7.3 cm pancreatic tail mass which may represent tumor with central necrosis. Marilu hepatic and mesenteric lymphadenopathy with necrosis noted. Multiple lytic osseous lesions in the ribs thoracolumbar spine and pelvis also suspicious for metastatic disease. IR consulted for biopsy which was done 10/16; pathology still pending. Oncology consulted and following. Discussed with family and all questions answered. They are considering hospice. She remained tachycardic felt related to the presumed metastatic disease. 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 She was discharged on 10/19/23 Status at Discharge Cognitive/behavioral status at discharge: stable Time Spent with Patient Time attestation: Total time spent providing and/or coordinating discharge services: 36 minutes Time spent: Greater than 30 minutes Exam Narrative: AF 98.0 125/71 105 20 91% 1L Gen - NARD Chest - CTA bilaterally, nml RR CV - RRR S1/S2. Tele showing mild sinus tachycardia but no significant dysrhythmias Abd - Soft, NT, ND, +BS Ext - No pedal edema Psych - Nml mood and affect. alert, confused Skin - Warm and dry DS: Data Data Completed and Pending Pending studies at discharge: Pending at discharge 10/17/23 13:15 Surgical [PTH] Routine Labs on day of discharge: Labs from last 24 hours 10/19/23 10/19/23 10/18/23 11:27 07:33 21:08 POC Capillary Glucose 157 H 91 92 Preliminary micro results at discharge 10/16/23 14:28 Blood Cu
[2023-10-19 16:18] LABS: Glucose Point of Care 151 mg/dl (65-105)
--- NOTE | 2023-10-25 06:40 | PC.NURSE ---
Liver pathology is pending at this time. [id number] [place] at [id number] Castillo aware. Results faxed to Dr. Desir.
== END 2023-10-19 20:00 | DRG 872 ==
LOC: ANHED 13:47 → ANHIMU 17:47
PROVIDERS: Nurse Practitioner Family; Physician Assistant; Admitting Provider Internal Medicine; Emergency Provider General Practice; PCP Internal Medicine; Visit Provider Internal Medicine
DX: A41.9 Sepsis, unspecified organism (principal); N39.0 Urinary tract infection, site not specified; C78.7 Secondary malignant neoplasm of liver and intrahepatic bile duct; B96.20 Unspecified Escherichia coli [E. coli] as the cause of diseases classified elsewhere; C80.1 Malignant (primary) neoplasm, unspecified; R74.01 Elevation of levels of liver transaminase levels; R79.89 Other specified abnormal findings of blood chemistry; F79 Unspecified intellectual disabilities; F20.9 Schizophrenia, unspecified; E03.9 Hypothyroidism, unspecified; G40.909 Epilepsy, unspecified, not intractable, without status epilepticus; J45.909 Unspecified asthma, uncomplicated; Z20.822 Contact with and (suspected) exposure to COVID-19
CPT/HCPCS: 36415; 36600; 47000; 70450; 71046; 71275; 74177; 76705; 76942; 80053; 80074; 80307; 81001; 82140; 82375; 82607; 82728; 82805; 82948; 83050; 83540; 83550; 83605; 83690; 83735; 83880; 84443; 84484; 85025; 85610; 85652; 85730; 86140; 86301; 87040; 87077; 87086; 87088; 87186; 87636; 88307; 88342; 93005; 93306; 99285; A9270; J0696; J1650; J7030; Q9967